=== PATIENT | female | born 1975 | race Caucasian/White ===

== ENCOUNTER 2016-11-30 06:37 | Emergency (ER) | payer SELFPAY ==
[2016-11-30] MEDS ORDERED: Ondansetron 4 MG/2 ML SDV IVPUSH ONE ×2 (07:17→09:30)
--- NOTE | 2016-11-30 07:25 | EDM.PDOC ---
ED HPI GENERAL MEDICAL PROBLEM - General Chief Complaint: Abdominal Pain Stated Complaint: ABDOMINAL PAIN Time Seen by Provider: 11/30/16 07:05 Source of Information: Reports: Patient, Old Records, RN Notes Reviewed History Limitations: Reports: Uncooperative - History of Present Illness INITIAL COMMENTS - FREE TEXT/NARRATIVE: The patient states that she developed epigastric abdominal pain approximately 24 hours ago, with nausea and vomiting for the past 12 hours. She describes the pain is a burning/crampy sensation. It is constant, and the patient has not identified any modifiers. She denies recent fever, constipation, diarrhea, or urinary symptoms. She denies prior similar symptoms. While I have never met the patient previously, a review of the medical records indicates that the patient has been seen in this ED on 6 prior occasions as far back as 06/15/2014, and as recently as 12/12/2014, for virtually identical complaints. She has undergone 3 abdominal radiographs and 1 CT scan of the abdomen and pelvis, all of which were unremarkable. She was admitted on 2014 and underwent an EGD by Dr. Lopez, which found diffuse gastritis without ulcerations. Additionally, the patient has a well-documented history of polysubstance abuse, with urine drug screens being positive for a mixture of opiates, barbiturates, amphetamine, methamphetamine, MDMA, benzodiazepines, and marijuana on 06/22/2014 , 12/12/2014, 04/06/2015, and 07/26/2015. The patient does not have a PCP. Middle Abdominal Pain Score (Numeric/FACES): 8 - Related Data Allergies Allergy/AdvReac Type Severity Reaction Status Date / Time Penicillins Allergy Airway Verified 11/30/16 06:55 Tightness aspirin AdvReac Bleeding Verified 11/30/16 06:55 meloxicam [From Mobic] AdvReac Abdominal Verified 11/30/16 06:55 Pain Home Meds: Home Meds Albuterol Sulfate [Proventil Hfa] 2 puff IH DAILY 11/30/16 [History] Past Medical History Respiratory History: Reports: Asthma (suspected, not confirmed) Gastrointestinal History: Reports: Gastritis DOG BATHER History: Reports: Psychiatric History: Reports: Addiction (polysubstance), Anxiety, Depression - Past Surgical History HEENT Surgical History: Reports: Tonsillectomy GI Surgical History: Reports: Appendectomy, Cholecystectomy Female Surgical History: Reports: Tubal Ligation Social & Family History - Tobacco Use Smoking Status *Q: Current Every Day Smoker Years of Tobacco use: 10 Packs/Tins Daily: 0.5 - Caffeine Use Caffeine Use: Reports: Soda - Alcohol Use Alcohol Use History: No Days Per Week of Alcohol Use: 0 - Recreational Drug Use Recreational Drug Use: Yes Drug Use in Last 12 Months: Yes Recreational Drug Type: Reports: Amphetamines (Speed), Barbituates, Benzodiazepines, Ecstasy, Heroin, Marijuana/Hashish, Methamphetamine - Living Situation & Occupation Living situation: Reports: Single, Alone Occupation: Unemployed ED ROS GENERAL - Review of Systems Review Of Systems: See Below Constitutional: Reports: No Symptoms HEENT: Reports: No Symptoms Respiratory: Reports: No Symptoms Cardiovascular: Reports: No Symptoms Endocrine: Reports: No Symptoms GI/Abdominal: Reports: No Symptoms : Reports: No Symptoms Musculoskeletal: Reports: No Symptoms Skin: Reports: No Symptoms Neurological: Reports: No Symptoms Psychiatric: Reports: No Symptoms Hematologic/Lymphatic: Reports: No Symptoms Immunologic: Reports: No Symptoms ED EXAM, GI/ABD - Physical Exam Exam: See Below Exam Limited By: No Limitations General Appearance: Alert, WD/WN, Other (Somewhat histrionic, writhing about the gurney) Eyes: Bilateral: Normal Appearance, EOMI Ears: Normal External Exam, Hearing Grossly Normal Nose: Normal Inspection, No Blood Throat/Mouth: Normal Inspection, Normal Lips, Normal Voice, No Airway Compromise Head: Atraumatic, Normocephalic Neck: Normal Inspection, Full Range of Motion Respiratory/Chest: No Respiratory Distress, Lungs Clear, Normal Breath Sounds, No Accessory Muscle Use Cardiovascular: Normal Peripheral Pulses, Regular Rate, Rhythm, No Gallop, No JVD, No Murmur, No Rub GI/Abdominal Exam: Normal Bowel Sounds, Soft, No Organomegaly, No Distention, No Abnormal Bruit, No Mass, Tender (The patient indicates extreme pain to even mild palpation across the entire abdomen, including the lower abdomen) (Female) Exam: Deferred Rectal (Female) Exam: Deferred Back Exam: Normal Inspection, Full Range of Motion, NT Extremities: Normal Inspection, Normal Range of Motion, No Pedal Edema, Normal Capillary Refill Neurological: Alert, Oriented, No Motor/Sensory Deficits Psychiatric: Other (Unable to assess) Skin Exam: Warm, Dry, Intact, Normal Color, No Rash Lymphatic: No Adenopathy Course - Vital Signs Last Recorded V/S: Last Vital Signs Temp 36.7 C 11/30/16 06:53 Pulse 90 11/30/16 06:53 Resp 16 11/30/16 06:53 BP 141/86 H 11/30/16 06:53 Pulse Ox 95 11/30/16 06:53 - Orders/Labs/Meds Orders: Active Orders 24 hr Category Date Time Status Abdomen Pelvis w Cont [CT] Stat Exams 11/30/16 07:17 Taken Sodium Chloride 0.9% [Normal Saline] 1,000 ml Med 11/30/16 07:30 Active IV ASDIRECTED Sodium Chloride 0.9% [Saline Flush] Med 11/30/16 11:05 Active 10 ml FLUSH ONETIME PRN Medication Orders Sodium Chloride (Normal Saline) 1,000 mls @ 150 mls/hr IV ASDIRECTED SORIN Last Admin: 11/30/16 08:24 Dose: 150 mls/hr Sodium Chloride (Saline Flush) 10 ml FLUSH ONETIME PRN PRN Reason: IV FLUSH Last Admin: 11/30/16 11:22 Dose: 10 ml Labs: Laboratory Tests 11/30/16 11/30/16 11/30/16 Range/Units 07:38 07:38 07:38 WBC (3.98-10.04) K/mm3 RBC (3.98-5.22) M/mm3 Hgb (11.2-15.7) gm/L Hct (34.1-44.9) % MCV (79.4-94.8) fl MCH (25.6-32.2) pg MCHC (32.2-35.5) g/dl RDW Std Deviation (36.4-46.3) fL Plt Count (182-369) K/mm3 MPV (9.4-12.3) fl Neutrophils % (Manual) (40-60) % Band Neutrophils % (0-10) % Lymphocytes % (Manual) (20-40) % Atypical Lymphs % % Monocytes % (Manual) (2-10) % Eosinophils % (Manual) (0.7-5.8) % Basophils % (Manual) (0.1-1.2) Platelet Estimate Plt Morphology Comment Polychromasia Poikilocytosis Anisocytosis Microcytosis Macrocytosis Target Cells Ovalocytes RBC Morph Comment Sodium (136-145) mEq/L Potassium (3.5-5.1) mEq/L Chloride (98-107) mEq/L Carbon Dioxide (21-32) mEq/L Anion Gap (5-15) BUN (7-18) mg/dL Creatinine (0.55-1.02) mg/dL Est Cr Clr Drug Dosing mL/min Estimated GFR (MDRD) (>60) mL/min BUN/Creatinine Ratio (14-18) Glucose (74-106) mg/dL Calcium (8.5-10.1) mg/dL Total Bilirubin (0.2-1.0) mg/dL AST (15-37) U/L ALT (14-59) U/L Alkaline Phosphatase (46-116) U/L Total Protein (6.4-8.2) g/dl Albumin (3.4-5.0) g/dl Globulin gm/dL Albumin/Globulin Ratio (1-2) Lipase (73-393) U/L Urine Color Yellow (Yellow) Urine Appearance Slt cloudy H (Clear) Urine pH 7.0 (5.0-8.0) Ur Specific [place] 1.025 (1.005-1.030) Urine Protein 2+ H (Negative) Urine Glucose (UA) Negative (Negative) Urine Ketones Trace H (Negative) Urine Occult Blood 3+ H (Negative) Urine Nitrite Negative (Negative) Urine Bilirubin 1+ H (Negative) Urine Urobilinogen 1.0 (0.2-1.0) Ur Leukocyte Esterase Negative (Negative) Urine RBC 5-10 H (0-5) /hpf Urine WBC 0-5 (0-5) /hpf Ur Epithelial Cells 0-5 (0-5) /hpf Urine Bacteria Rare (FEW) /hpf Hyaline Casts 0-5 (0-5) /lpf Urine Mucus Moderate H (FEW) /hpf Urine HCG, Qual Negative (NEGATIVE) Urine Opiates Screen Presumptive positive H (NEGATIVE) Ur Buprenorphine Scrn Negative (NEGATIVE) Ur Oxycodone Screen Negative (NEGATIVE) Urine Methadone Screen Negative (NEGATIVE) Ur Propoxyphene Screen Negative (NEGATIVE) Ur Barbiturates Screen Negative (NEGATIVE) Ur Tricyclics Screen Negative (NEGATIVE) Ur Phencyclidine Scrn Negative (NEGATIVE) Ur Amphetamine Screen Presumptive positive H (NEGATIVE) U Methamphetamines Scrn Presumptive positive H (NEGATIVE) U Benzodiazepines Scrn Negative (NEGATIVE) U Cocaine Metab Screen Negative (NEGATIVE) U Marijuana (THC) Screen Negative (NEGATIVE) 11/30/16 11/30/16 Range/Units 08:21 08:21 WBC 16.72 H (3.98-10.04) K/mm3 RBC 5.26 H (3.98-5.22) M/mm3 Hgb 15.0 (11.2-15.7) gm/L Hct 44.5 (34.1-44.9) % MCV 84.6 (79.4-94.8) fl MCH 28.5 (25.6-32.2) pg MCHC 33.7 (32.2-35.5) g/dl RDW Std Deviation 40.7 (36.4-46.3) fL Plt Count 472 H (182-369) K/mm3 MPV 9.0 L (9.4-12.3) fl Neutrophils % (Manual) 86 H (40-60) % Band Neutrophils % 0 (0-10) % Lymphocytes % (Manual) 9 L (20-40) % Atypical Lymphs % 2 % Monocytes % (Manual) 1 L (2-10) % Eosinophils % (Manual) 1 (0.7-5.8) % Basophils % (Manual) 1 (0.1-1.2) Platelet Estimate Increased Plt Morphology Comment Normal Polychromasia 1+ slight Poikilocytosis 1+ slight Anisocytosis 1+ slight Microcytosis 1+ slight Macrocytosis 1+ slight Target Cells 1+ slight Ovalocytes 1+ slight RBC Morph Comment Abnormal Sodium 137 (136-145) mEq/L Potassium 4.1 (3.5-5.1) mEq/L Chloride 100 (98-107) mEq/L Carbon Dioxide 27 (21-32) mEq/L Anion Gap 14.1 (5-15) BUN 10 (7-18) mg/dL Creatinine 1.0 (0.55-1.02) mg/dL Est Cr Clr Drug Dosing 61.86 mL/min Estimated GFR (MDRD) > 60 (>60) mL/min BUN/Creatinine Ratio 10.0 L (14-18) Glucose 144 H (74-106) mg/dL Calcium 9.7 (8.5-10.1) mg/dL Total Bilirubin 0.7 (0.2-1.0) mg/dL AST 177 H (15-37) U/L ALT 259 H (14-59) U/L Alkaline Phosphatase 167 H (46-116) U/L Total Protein 7.7 (6.4-8.2) g/dl Albumin 4.1 (3.4-5.0) g/dl Globulin 3.6 gm/dL Albumin/Globulin Ratio 1.1 (1-2) Lipase 175 (73-393) U/L Urine Color (Yellow) Urine Appearance (Clear) Urine pH (5.0-8.0) Ur Specific [place] (1.005-1.030) Urine Protein (Negative) Urine Glucose (UA) (Negative) Urine Ketones (Negative) Urine Occult Blood (Negative) Urine Nitrite (Negative) Urine Bilirubin (Negative) Urine Urobilinogen (0.2-1.0) Ur Leukocyte Esterase (Negative) Urine RBC (0-5) /hpf Urine WBC (0-5) /hpf Ur Epithelial Cells (0-5) /hpf Urine Bacteria (FEW) /hpf Hyaline Casts (0-5) /lpf Urine Mucus (FEW) /hpf Urine HCG, Qual (NEGATIVE) Urine Opiates Screen (NEGATIVE) Ur Buprenorphine Scrn (NEGATIVE) Ur Oxycodone Screen (NEGATIVE) Urine Methadone Screen (NEGATIVE) Ur Propoxyphene Screen (NEGATIVE) Ur Barbiturates Screen (NEGATIVE) Ur Tricyclics Screen (NEGATIVE) Ur Phencyclidine Scrn (NEGATIVE) Ur Amphetamine Screen (NEGATIVE) U Methamphetamines Scrn (NEGATIVE) U Benzodiazepines Scrn (NEGATIVE) U Cocaine Metab Screen (NEGATIVE) U Marijuana (THC) Screen (NEGATIVE) Meds: Medications Generic Name Dose Route Start Last Admin Trade Name Freq PRN Reason Stop Dose Admin Sodium Chloride 1,000 mls @ 150 mls/hr 11/30/16 07:30 11/30/16 08:24 Normal Saline IV 150 mls/hr ASDIRECTED SORIN Administration Sodium Chloride 10 ml 11/30/16 11:05 11/30/16 11:22 Saline Flush FLUSH 10 ml ONETIME PRN Administration IV FLUSH Discontinued Medications Generic Name Dose Route Start Last Admin Trade Name Freq PRN Reason Stop Dose Admin Iopamidol 125 ml 11/30/16 11:05 11/30/16 11:22 Isovue-300 (61%) IVPUSH 11/30/16 11:06 125 ml ONETIME ONE Administration Lidocaine HCl Confirm 11/30/16 07:57 11/30/16 08:24 Xylocaine 1% Administered 11/30/16 07:58 10 ml Dose Administration 10 ml .ROUTE .STK-MED ONE Ondansetron HCl 4 mg 11/30/16 07:17 11/30/16 08:24 Zofran IVPUSH 11/30/16 07:18 4 mg ONETIME ONE Administration Ondansetron HCl 4 mg 11/30/16 09:30 11/30/16 09:35 Zofran IVPUSH 11/30/16 09:31 4 mg ONETIME ONE Administration - Re-Assessments/Exams Free Text/Narrative Re-Assessment/Exam: 11/30/16 07:18 The patient has a documented history of polysubstance abuse, but denied current or prior drug use. Further, on her physical examination, the patient was histrionic, writhing abouth the gurney with even mild palpation of her lower abdomen. I am therefore withholding opioid pain medication until/unless objective findings of a painful process are found. 11/30/16 12:12 CT of the abdomen and pelvis with IV contrast is read by [facility] as: 1. Enlarged uterus and a small amount of free fluid in the cul-de-sac. The ovaries are not well delineated. If clinically indicated the pelvis could be further evaluated with pelvic ultrasound. 2. Enlarged liver but no focal liver mass. 3. Gas in the urinary bladder perhaps from recent catheterization. Clinical correlation is recommended. 4. No sign of abnormality that would account for the patient's epigastric pain. 11/30/16 12:22 Test results discussed with the patient. Presuming the patient actually has epigastric pain, it is likely due to gastritis, as no other etiology was found on today's workup. The patient states, however, that she is not really here for epigastric pain. She is here for symptoms of withdraw from heroin and methamphetamine. She states that she injects 1/2 g heroin daily, with her last use 3 days ago, and injects about 1/4 g methamphetamine every other day, with last use 3 days ago. She states that she also uses pills ([place], Percocet, oxycodone, OxyContin, etc. ) whenever she can get her hands on them. She states that she took half a Percocet 2 days ago. The patient is requesting help for her opioid withdrawals, such as a prescription for Suboxone or methadone, which is not possible from this ED. She is asking for Ativan to help with her shaky legs. 11/30/16 12:28 Case discussed with Roseanne from the [facility] Crisis line at 12:22. She states that although [facility] beds are available, because the patient's urine drug screen is positive, she would not qualify for [facility] at this time. She would not qualify unless her urine drug screen were clean. She is recommending that the patient go to early access tomorrow morning between the hours of 8:00 and 10:30, where she could be seen by a counselor and treatment options discussed. Because benzodiazepines will show up on the urine drug screen, she is advising against treatment with benzodiazepines at this time. 11/30/16 12:35 The above was discussed with the patient. She states that she is willing to go to early access tomorrow, but is again requesting Ativan for her legs. Ativan is not a recognized treatment for opioid withdrawal. Although I doubt it will help much, I will order gabapentin 300 mg, as it has been used off label for restless leg syndrome. While there are recognized medical treatments for opioid withdrawal, stimulants , such as methamphetamine, do not require medical treatment for withdrawal symptoms. Departure - Departure Time of Disposition: 12:39 Disposition: Home, Self-Care 01 Condition: Fair Clinical Impression: Heroin withdrawal, Heroin abuse, Methamphetamine abuse, Polysubstance abuse, Gastritis - Discharge Information Referrals: PCP,None [Primary Care Provider] - Forms: ED Department Discharge Additional Instructions: You were seen in the emergency room for upper abdominal pain, but later admitted that you are suffering from withdrawal from heroin and other opioids. Workup in the ER included blood work, a urinalysis, a urine test, a urine drug screen, and a CT scan of your abdomen and pelvis. Your workup was remarkable for a drug screen positive for opiates, amphetamine, and methamphetamine. Your liver enzymes are modestly elevated the remainder of her workup was unremarkable. Your upper abdominal pain may be due to inflammation of the stomach lining, also known as gastritis. We recommend you take [id number] Pepcid twice a day. Your symptoms of restlessness are likely due to heroin withdrawal. You were given oral gabapentin. We recommend you follow-up with [facility] human services early access tomorrow morning between the hours of 8:00 to 10:30, where you can be evaluated by a counselor for further treatment options. Be aware that you cannot be accepted to an [facility] bed with a positive drug screen. [facility] [address] [place] If any other problems, please do not hesitate to return to the ER. - My Orders Last 24 Hours: My Active Orders 11/30/16 07:17 Abdomen Pelvis w Cont [CT] Stat 11/30/16 07:30 Sodium Chloride 0.9% [Normal Saline] 1,000 ml IV ASDIRECTED 11/30/16 11:05 Sodium Chloride 0.9% [Saline Flush] 10 ml FLUSH ONETIME PRN - Assessment/Plan Last 24 Hours: My Active Orders 11/30/16 07:17 Abdomen Pelvis w Cont [CT] Stat 11/30/16 07:30 Sodium Chloride 0.9% [Normal Saline] 1,000 ml IV ASDIRECTED 11/30/16 11:05 Sodium Chloride 0.9% [Saline Flush] 10 ml FLUSH ONETIME PRN
[2016-11-30] MEDS ORDERED: Sodium Chloride 0.9% 1,000 ML IV SCH (07:30)
[2016-11-30] MEDS ORDERED: Lidocaine 1% 10 ML MDV ONE (07:57)
--- NOTE | 2016-11-30 08:49 | PCM.SN ---
- Free Text/Narrative Note: Difficult IV start 11/30/2016 Called to see patient with history of IV drug abuse requiring IV access. Multiple previous attempts were unsuccessful. A 20ga 1.88 inch angiocath was attempted under ultrasound guidance in the left upper arm, prepped with chlorahexadine, 1% lidocaine skin wheel .5 ml, good blood return, would not advance into vessel. The right arm was examined with ultrasound, prepped with cholorahexadine, and a 20ga 1.88 inch angiocath was placed with ease following a 1% lidocaine skin wheel .5ml, good blood return, advanced with ease into vessel, flushes with ease, secured. Patient tolerated the procedure well.
[2016-11-30] MEDS ORDERED: Iopamidol 612 MG/ML 150 ML Bottle IVPUSH ONE (11:05)
[2016-11-30] MEDS ORDERED: Sodium Chloride 0.9% 10 ML Syringe FLUSH PRN (11:05)
[2016-11-30] MEDS ORDERED: Gabapentin 300 MG Cap PO ONE (12:36)
[2016-11-30 13:58] VITALS: BP 112/85
--- NOTE | 2016-12-01 07:41 | CT ---
CT abdomen and pelvis Technique: Multiple axial sections were obtained from above the dome of the diaphragm inferiorly through the pubic symphysis. Intravenous contrast was utilized. No oral contrast has been given. Delayed images were obtained through the bladder. Comparison: Previous CT abdomen and pelvis study of 06/22/14. Findings: Visualized lung bases show nothing acute. Liver shows no focal parenchymal abnormality. Spleen appears within normal limits. Surgical clips are seen from prior cholecystectomy. Adrenal glands show no nodule. Kidneys show symmetric contrast enhancement without hydronephrosis or mass. Pancreas appears within normal limits. Accessory splenic nodule is identified medial to the spleen as an incidental note. Aorta shows no aneurysmal dilatation. No retroperitoneal adenopathy or mesenteric abnormalities are seen. Small amount of free fluid within the pelvis is seen which is felt to be incidental. Uterus is generous in size which is felt to be incidental. Mild increased stool is noted throughout colon. Minimal fluid is seen off the inferior right lobe of the liver. Delayed images show contrast within distal ureters and bladder. Small amount of air is seen within the bladder presumably from recent instrumentation. Bone window settings were reviewed appearing within normal limits for the patient's age. Impression: 1. Diffuse increased stool within the colon. 2. Small amount of fluid off the inferior right lobe of the liver and within cul-de-sac likely physiologic. 3. Other incidental findings as noted above. Diagnostic code #2 I agree with preliminary report issued by [facility] ([facility] preliminary report dictated on 11/30/16, 1:06 PM Central Time)
== END 2016-11-30 13:00 | disposition home or self-care (01) ==
LOC: JD.ED 06:37
DX: K29.70 Gastritis, unspecified, without bleeding (principal); F11.23 Opioid dependence with withdrawal; F15.10 Other stimulant abuse, uncomplicated; J45.909 Unspecified asthma, uncomplicated; F17.210 Nicotine dependence, cigarettes, uncomplicated; Z88.0 Allergy status to penicillin; Z88.6 Allergy status to analgesic agent; Z88.8 Allergy status to other drugs, medicaments and biological substances; Z90.49 Acquired absence of other specified parts of digestive tract; Z98.890 Other specified postprocedural states
CPT/HCPCS: 36415; 74177; 80053; 80306; 81001; 81025; 83690; 85025; 96361; 96374; 96376; 99284; A9270; J2405; J7040; J7050; Q9967; 99285

== ENCOUNTER 2016-12-02 00:43 | Emergency (ER) | payer SELFPAY ==
[2016-12-02 00:52] VITALS: BP 135/96
[2016-12-02] MEDS ORDERED: Sodium Chloride 0.9% 1,000 ML IV ONE (01:21)
[2016-12-02] MEDS ORDERED: Albuterol/Ipratropium 3.0-0.5 MG/3 ML Neb Soln NEB ONE (01:21)
[2016-12-02] MEDS ORDERED: Ondansetron 4 MG/2 ML SDV IVPUSH ONE (01:21)
--- NOTE | 2016-12-02 01:24 | EDM.PDOC ---
ED HPI GENERAL MEDICAL PROBLEM - General Chief Complaint: Abdominal Pain Stated Complaint: ABDOMINAL PAIN Time Seen by Provider: 12/02/16 00:52 Source of Information: Reports: Patient, Old Records, RN Notes Reviewed History Limitations: Reports: No Limitations - History of Present Illness INITIAL COMMENTS - FREE TEXT/NARRATIVE: The patient was seen by me in this ED yesterday morning, 11/30/2016, with a complaint of epigastric abdominal pain for 24 hours, along with nausea and vomiting for 12 hours. Workup included a CBC, CMP, lipase level, urinalysis, urine test, urine drug screen, and a CT scan of the abdomen and pelvis with oral and IV contrast. The patient's workup was remarkable for a WBC count elevated at 16.72, but with 0% bandemia. Her CMP was remarkable for a blood glucose elevated at 144, AST elevated at 177, ALT elevated at 259, and alkaline phosphatase elevated at 167. The remainder of her CMP was normal. Her lipase was normal at 175. Her urinalysis was unremarkable, and her urine test was negative. Her urine drug screen was positive for opiates, amphetamine, and methamphetamine. The CT scan of her abdomen and pelvis had some incidental findings, but nothing that would account for the patient's symptoms. When confronted with her positive urine drug screen, the patient admitted that she was here for heroin withdrawal. She stated that she injects 1/2 gram of heroin daily, with her last use on 11/27/2016, and that she also injects about 1/ 4 g methamphetamine every other day, with her last use 11/27/2016. She also uses pills, such as [place], Percocet, oxycodone, OxyContin etc., whatever she can get her hands on them with her last use of a half Percocet on 11/28/2016. The patient requested help for her opioid withdrawal, such as a prescription for Suboxone or methadone, which is not possible. She asked for Ativan for her shaky legs, however, I spoke with Roseanne from the [facility] Crisis line, who stated that although RCC beds were available, because the patient's urine drug screen was positive, the patient would not qualify for an RCC bed until her urine drug screen was negative. Roseanne recommended that I do not treat the patient with benzodiazepines, as that would show up on the drug screen, and she recommended that the patient follow-up at [facility] this morning between the hours of 8:00 and 10:30, where she could be seen by a counselor and treatment options discussed. The patient now returns, stating that she is here for the same issues of abdominal pain, nausea, and vomiting. She states that she did not go to [facility] today because she is "too sick". On physical examination today, I note that the patient has significant expiratory wheezes. The patient states that she smoked 5 cigarettes today. The patient does not have a PCP. Epigastric Pain Score (Numeric/FACES): 10 - Related Data Allergies Allergy/AdvReac Type Severity Reaction Status Date / Time Penicillins Allergy Airway Verified 12/02/16 00:53 Tightness aspirin AdvReac Bleeding Verified 12/02/16 00:53 meloxicam [From Mobic] AdvReac Abdominal Verified 12/02/16 00:53 Pain Home Meds: Home Meds Albuterol Sulfate [Proventil Hfa] 2 puff IH DAILY 11/30/16 [History] Past Medical History Respiratory History: Reports: Asthma (suspected, not confirmed) Gastrointestinal History: Reports: Gastritis [employer] History: Reports: Psychiatric History: Reports: Addiction (polysubstance), Anxiety, Depression - Past Surgical History HEENT Surgical History: Reports: Tonsillectomy GI Surgical History: Reports: Appendectomy, Cholecystectomy Female Surgical History: Reports: Tubal Ligation Social & Family History - Tobacco Use Smoking Status *Q: Current Every Day Smoker Years of Tobacco use: 10 Packs/Tins Daily: 0.5 - Caffeine Use Caffeine Use: Reports: None - Alcohol Use Alcohol Use History: No Days Per Week of Alcohol Use: 0 - Recreational Drug Use Recreational Drug Use: Yes Drug Use in Last 12 Months: Yes Recreational Drug Type: Reports: Amphetamines (Speed), Barbituates, Benzodiazepines, Ecstasy, Heroin, Marijuana/Hashish, Methamphetamine Recreational Drug Use Frequency: Daily - Living Situation & Occupation Living situation: Reports: Single, Alone Occupation: Unemployed ED ROS GENERAL - Review of Systems Review Of Systems: See Below Constitutional: Reports: No Symptoms HEENT: Reports: No Symptoms Respiratory: Reports: No Symptoms Cardiovascular: Reports: No Symptoms Endocrine: Reports: No Symptoms GI/Abdominal: Reports: Abdominal Pain (as per the HPI), Nausea (as per the HPI) , Vomiting (as per the HPI) : Reports: No Symptoms Musculoskeletal: Reports: No Symptoms Skin: Reports: No Symptoms Neurological: Reports: No Symptoms Psychiatric: Reports: No Symptoms Hematologic/Lymphatic: Reports: No Symptoms Immunologic: Reports: No Symptoms ED EXAM, GENERAL - Physical Exam Exam: See Below Exam Limited By: No Limitations General Appearance: Alert, WD/WN, No Apparent Distress Eye Exam: Bilateral Eye: Normal Inspection Ears: Normal External Exam, Hearing Grossly Normal Nose: Normal Inspection, No Blood Throat/Mouth: Normal Inspection, Normal Lips, Normal Voice, No Airway Compromise Head: Atraumatic, Normocephalic Neck: Normal Inspection, Full Range of Motion Respiratory/Chest: No Respiratory Distress, No Accessory Muscle Use, Wheezing ( expiratory, throughout lung mayen). No: Crackles, Rhonchi, Prolonged Expiration Cardiovascular: Normal Peripheral Pulses, Regular Rate, Rhythm, No Gallop, No JVD, No Murmur, No Rub Peripheral Pulses: 4+: Radial (L), Radial (R) GI/Abdominal: Normal Bowel Sounds, Soft, Non-Tender (when distracted), No Organomegaly, No Distention, No Abnormal Bruit, No Mass (Female) Exam: Deferred Rectal (Female) Exam: Deferred Back Exam: Normal Inspection, Full Range of Motion, NT Extremities: Normal Inspection, Normal Range of Motion, No Pedal Edema, Normal Capillary Refill Neurological: Alert, Oriented, Normal Cognition, No Motor/Sensory Deficits Psychiatric: Normal Affect Skin Exam: Warm, Dry, Intact, Normal Color, No Rash Lymphatic: No Adenopathy Course - Vital Signs Last Recorded V/S: Last Vital Signs Temp 37.2 C 12/02/16 00:48 Pulse 87 12/02/16 00:48 Resp 18 12/02/16 00:48 BP 135/96 H 12/02/16 00:48 Pulse Ox 98 12/02/16 00:48 - Orders/Labs/Meds Orders: Active Orders 24 hr Category Date Time Status Orthostatic Vital Signs [RC] STAT Care 12/02/16 01:19 Active RT Aerosol Therapy [RC] ASDIRECTED Care 12/02/16 01:22 Active Chest 2V [CR] Stat Exams 12/02/16 01:24 Ordered DRUG SCREEN, URINE [URCHEM] Stat Lab 12/02/16 01:19 Uncollected HCG QUALITATIVE,URINE [URCHEM] Stat Lab 12/02/16 01:18 Uncollected UA W/MICROSCOPIC [URIN] Stat Lab 12/02/16 01:17 Uncollected Meds: Medications Discontinued Medications Generic Name Dose Route Start Last Admin Trade Name Gunjan PRN Reason Stop Dose Admin Albuterol/Ipratropium 3 ml 12/02/16 01:21 12/02/16 01:49 Duoneb 3.0-0.5 Mg/3 Ml NEB 12/02/16 01:22 3 ml ONETIME ONE Administration Sodium Chloride 1,000 mls @ 999 mls/hr 12/02/16 01:21 Normal Saline IV 12/02/16 02:21 ONETIME ONE Ondansetron HCl 4 mg 12/02/16 01:21 Zofran IVPUSH 12/02/16 01:22 ONETIME ONE - Re-Assessments/Exams Free Text/Narrative Re-Assessment/Exam: 12/02/16 01:36 The patient appears considerably better than when I saw her yesterday. She is not writhing around on the gurney, and when distracted, she had no abdominal tenderness. I have ordered some tests to make sure that the patient has not developed pancreatitis or significant electrolyte abnormalities. I will check orthostatics, and because of the patient's wheezes, that she did not have yesterday, I have ordered a chest x-ray. I will recheck a urine drug screen and alcohol level on the off-chance that the urine drug screen will be negative, which would make the patient eligible for an RCC bed. 12/02/16 02:16 Notified by the nurse that the patient just eloped. Departure - Departure Time of Disposition: 02:16 Disposition: Eloped 07 Condition: Fair Clinical Impression: Heroin withdrawal, Polysubstance abuse, Abdominal pain of unknown etiology, Nausea & vomiting - Discharge Information - My Orders Last 24 Hours: My Active Orders 12/02/16 01:17 UA W/MICROSCOPIC [URIN] Stat 12/02/16 01:18 HCG QUALITATIVE,URINE [URCHEM] Stat 12/02/16 01:19 Orthostatic Vital Signs [RC] STAT DRUG SCREEN, URINE [URCHEM] Stat 12/02/16 01:22 RT Aerosol Therapy [RC] ASDIRECTED 12/02/16 01:24 Chest 2V [CR] Stat - Assessment/Plan Last 24 Hours: My Active Orders 12/02/16 01:17 UA W/MICROSCOPIC [URIN] Stat 12/02/16 01:18 HCG QUALITATIVE,URINE [URCHEM] Stat 12/02/16 01:19 Orthostatic Vital Signs [RC] STAT DRUG SCREEN, URINE [URCHEM] Stat 12/02/16 01:22 RT Aerosol Therapy [RC] ASDIRECTED 12/02/16 01:24 Chest 2V [CR] Stat
== END 2016-12-02 02:16 | disposition left against medical advice (07) ==
LOC: JD.ED 00:43
DX: F11.23 Opioid dependence with withdrawal (principal); F19.10 Other psychoactive substance abuse, uncomplicated; J45.909 Unspecified asthma, uncomplicated; F32.9 Major depressive disorder, single episode, unspecified; Z79.899 Other long term (current) drug therapy; Z88.0 Allergy status to penicillin; F17.210 Nicotine dependence, cigarettes, uncomplicated
CPT/HCPCS: 99284